=== PATIENT | female | born 1990 | race Caucasian/White ===

== ENCOUNTER 2022-10-03 20:29 | Emergency (ER) | payer BC ==
[~2022-10-03] VITALS: Ht 170.2 cm; Wt 68.0 kg
--- NOTE | 2022-10-03 21:10 | NUR ---
Dr. Summers at bedside for MSE.
[2022-10-03] MEDS ORDERED: CEPH500T PO (21:12)
--- NOTE | 2022-10-03 21:30 | NUR ---
Patient discharged to home in stable condition. Written and verbal after care instructions given. Patient verbalizes understanding of instructions. Stressed follow up or return to ER for worsening s/s. Patient out of ER with steady gait, no acute signs of distress, VSS, all belongings taken.
[2022-10-03 21:31] VITALS: BP 99/59
== END 2022-10-03 21:31 | disposition home or self-care (01) ==
LOC: ER 20:41
DX: L73.9 Follicular disorder, unspecified (principal)
CPT/HCPCS: A4663